=== PATIENT | female | born 1985 | race Asian ===

== ENCOUNTER 2021-11-21 13:04 | Emergency (ER) | payer MEDICAID ==
[~2021-11-21] VITALS: Ht 149.9 cm; Wt 61.4 kg
[2021-11-21 14:49] VITALS: BP 139/116
[2021-11-21] MEDS ORDERED: AMOX500C2 PO (14:55)
== END 2021-11-21 15:19 | disposition home or self-care (01) ==
LOC: ER 13:05
DX: J20.9 Acute bronchitis, unspecified (principal)
CPT/HCPCS: 99283

== ENCOUNTER 2024-08-29 20:00 | Inpatient (IN) | payer MEDICAID ==
[~2024-08-29] VITALS: Ht 149.9 cm; Wt 60.5 kg
[2024-08-29] MEDS ORDERED: nitroGLYCERIN-Tridil 50MG/D5W 250 ML IV ONE (20:40)
[2024-08-29 20:49] LABS: ALANINE AMINOTRANSFERASE 41 U/L (12-78); ALBUMIN/GLOBULIN RATIO 1.1 (1.1-1.5); ALKALINE PHOSPHATASE 120 IU/L (46-116); ANION GAP 6 (8-16); ASPARTATE AMINO TRANSFERASE 51 U/L (10-37); BILIRUBIN,TOTAL 0.4 MG/DL (0.1-1.0); BLOOD UREA NITROGEN 17 MG/DL (7-18); BUN/CREATININE RATIO 22.1 (10.0-20.0); CALCIUM 8.3 MG/DL (8.5-10.1); CHLORIDE 111 MMOL/L (99-107); CREATININE 0.77 MG/DL (0.40-0.90); GLUCOSE 116 MG/DL (70-104); SODIUM 143 MMOL/L (135-145); TOTAL CARBON DIOXIDE 25.7 MMOL/L (24-32); TOTAL PROTEIN 7.5 G/DL (6.4-8.2); eCRCL 68 ML/MIN; eGFR 84 ML/MIN
[2024-08-29 20:56] LABS: PRO BRAIN NATRIURETIC PEPTIDE 270 PG/ML (0-125)
[2024-08-29 21:00] LABS: POTASSIUM 3.9 MMOL/L (3.5-5.1)
[2024-08-29] MEDS: nitroGLYCERIN-Tridil 50MG/D5W 250 ML IV ONE (21:08)
[2024-08-29 21:50] LABS: BASOPHILS # (AUTO) 0.1 X10'3 (0-0.2); BASOPHILS % (AUTO) 0.9 % (0-1); EOSINOPHILS # (AUTO) 0.6 X10'3 (0-0.9); EOSINOPHILS % (AUTO) 7.9 % (0-6); HEMATOCRIT 36.6 % (35.0-45.0); HEMOGLOBIN 12.2 g/dl (12.0-16.0); LYMPHOCYTES % (AUTO) 41.2 % (21-51); MEAN CORPUSCULAR HEMOGLOBIN 26.1 PG (27.0-31.0); MEAN CORPUSCULAR HGB CONC 33.3 g/dL (33.0-36.5); MEAN CORPUSCULAR VOLUME 78.4 FL (78-98); MONOCYTES # (AUTO) 0.4 X10'3 (0-0.9); MONOCYTES % (AUTO) 5.4 % (2-12); NEUTROPHILS # (AUTO) 3.3 X10'3 (1.8-7.7); NEUTROPHILS % (AUTO) 44.6 % (42-75); PLATELET COUNT 236 X10'3 (140-440); RED BLOOD COUNT 4.67 X10'6 (4.20-5.60); RED CELL DISTRIBUTION WIDTH 15.1 % (11.5-14.5); WHITE BLOOD COUNT 7.3 X10'3 (4.5-11.0)
[2024-08-29 21:58] LABS: BILIRUBIN,URINE NEGATIVE (Neg); CLARITY,URINE CLEAR (Clear); COLOR,URINE YELLOW (Yellow); GLUCOSE, URINE NEGATIVE (Neg); KETONES,URINE NEGATIVE (Neg); LEUKOCYTE ESTERASE ,URINE NEGATIVE (Neg); NITRITES, URINE NEGATIVE (Neg); OCCULT BLOOD,URINE LARGE (Neg); PH,URINE 6.5 (4.8-8.0); PROTEIN,URINE 30 mg/dl (Neg); UROBILINOGEN,URINE 0.2 E.U/dL (0.2-1.0)
[2024-08-29 22:00] LABS: UA COLLECTION TYPE CLN CATCH MIDSTREAM
[2024-08-29 22:05] LABS: BACTERIA,URINE 1+ /HPF (Neg); SQUAMOUS EPITHELIAL CELL,UR MODERATE /LPF (FEW); WBC,URINE 0-4 /HPF (0-4)
[2024-08-29] MEDS: ondansetron/PF 4mg/2ml inj IV ONE (22:18)
[2024-08-29] MEDS: morphine 4 MG/ML inj SYRINge IV ONE (22:18)
[2024-08-29] MEDS ORDERED: iohexol 350MG/ML 100ml bottle IV ONE (23:03)
[2024-08-29 23:21] LABS: URINE HCG NEGATIVE (NEG)
[2024-08-29] MEDS: hydrALAZINE 20mg/ml inj. IV ONE (23:35)
[2024-08-29 23:53] LABS: THYROID STIMULATING HORMONE 4.01 ulU/ml (0.34-4.50)
[2024-08-30] VITALS (9 sets, daily range): BP systolic 132–176; BP diastolic 72–102; PULSE 67–116; RESP 14–19; TEMP 98; O2SAT 96–99
[2024-08-30] MEDS ORDERED: acetaminophen 325mg tablet PO PRN (01:35)
[2024-08-30] MEDS ORDERED: morphine 2 MG/ML inj. syringe IV PRN (01:35)
[2024-08-30] MEDS ORDERED: magnesium sulf-water 4G/100mL 100 ML IV PRN (01:35)
[2024-08-30] MEDS ORDERED: mag hydrox/Alum hydrox/simeth 30ml oral suspension PO PRN (01:35)
[2024-08-30] MEDS ORDERED: potassium Cl 20 mEq SR tablet PO PRN (01:35)
[2024-08-30] MEDS ORDERED: magnesium sulf-water 2g/50mL 50 ML IV PRN (01:35)
[2024-08-30] MEDS ORDERED: potassium Cl 40MEQ/1/2NS 520ml 520 ML IV PRN (01:35)
[2024-08-30] MEDS ORDERED: magnesium hydroxide 30ml (MOM) UD suspension PO PRN (01:35)
[2024-08-30] MEDS ORDERED: magnesium Cl slow-release 64mg tablet PO PRN (01:35)
[2024-08-30 02:26] LABS: HEMOGLOBIN A1C 5.3 % (4.5-6.2)
[2024-08-30 02:49] LABS: MAGNESIUM 1.8 MG/DL (1.5-2.4)
[2024-08-30 03:02] LABS: POTASSIUM 3.6 MMOL/L (3.5-5.1)
[2024-08-30] MEDS: docusate sod 100mg capsule PO SCH (08:00)
[2024-08-30] MEDS: heparin, porcine 5000 units/ml vial SQ SCH (08:00)
[2024-08-30 08:02] LABS: BASOPHILS # (AUTO) 0.1 X10'3 (0-0.2); BASOPHILS % (AUTO) 0.9 % (0-1); EOSINOPHILS # (AUTO) 0.6 X10'3 (0-0.9); EOSINOPHILS % (AUTO) 7.9 % (0-6); HEMATOCRIT 35.2 % (35.0-45.0); HEMOGLOBIN 12.1 g/dl (12.0-16.0); LYMPHOCYTES # (AUTO) 2.7 X10'3 (1.1-4.8); LYMPHOCYTES % (AUTO) 35.5 % (21-51); MEAN CORPUSCULAR HEMOGLOBIN 26.9 PG (27.0-31.0); MEAN CORPUSCULAR HGB CONC 34.3 g/dL (33.0-36.5); MEAN CORPUSCULAR VOLUME 78.2 FL (78-98); MONOCYTES # (AUTO) 0.4 X10'3 (0-0.9); MONOCYTES % (AUTO) 5.7 % (2-12); NEUTROPHILS # (AUTO) 3.8 X10'3 (1.8-7.7); PLATELET COUNT 226 X10'3 (140-440); RED CELL DISTRIBUTION WIDTH 15.5 % (11.5-14.5); WHITE BLOOD COUNT 7.6 X10'3 (4.5-11.0)
[2024-08-30 08:14] LABS: ALANINE AMINOTRANSFERASE 33 U/L (12-78); ALBUMIN 3.3 G/DL (3.4-5.0); ALBUMIN/GLOBULIN RATIO 1.1 (1.1-1.5); ALKALINE PHOSPHATASE 99 IU/L (46-116); ANION GAP 11 (8-16); ASPARTATE AMINO TRANSFERASE 31 U/L (10-37); BILIRUBIN,TOTAL 0.4 MG/DL (0.1-1.0); BLOOD UREA NITROGEN 14 MG/DL (7-18); BUN/CREATININE RATIO 18.9 (10.0-20.0); CHLORIDE 109 MMOL/L (99-107); CREATININE 0.74 MG/DL (0.40-0.90); GLUCOSE 91 MG/DL (70-104); POTASSIUM 3.2 MMOL/L (3.5-5.1); SODIUM 143 MMOL/L (135-145); TOTAL CARBON DIOXIDE 22.8 MMOL/L (24-32); TOTAL PROTEIN 6.4 G/DL (6.4-8.2); eCRCL 70 ML/MIN; eGFR 88 ML/MIN
[2024-08-30] MEDS: potassium Cl 20 mEq SR tablet PO PRN (08:57)
[2024-08-30] MEDS: losartan 50mg tablet PO SCH (08:57)
[2024-08-30] MEDS: K and/or MAG REPLACEMENT MC SCH (08:58)
[2024-08-30] MEDS: hydrALAZINE 20mg/ml inj. IV PRN (10:51)
[2024-08-30] MEDS: nitroGLYCERIN 0.4mg/hour patch TD ONE (11:05)
[2024-08-30] MEDS ORDERED: metoprolol tartrate 1mg/ml inj IV PRN (12:25)
[2024-08-30] MEDS ORDERED: nitroGLYCERIN 0.4mg SUBLingual tab SL PRN ×2 (12:25→12:35)
[2024-08-30] MEDS: ondansetron/PF 4mg/2ml inj IV PRN (14:28)
[2024-08-30] MEDS: atorvastatin 20mg tablet PO SCH (14:31)
[2024-08-30] MEDS: acetaminophen 325mg tablet PO PRN (14:31)
[2024-08-30] MEDS: regadenoson 0.4mg/5ml syringe IV PRN (15:31)
[2024-08-30] MEDS ORDERED: iohexol 350MG/ML 100ml bottle IV ONE (18:03)
[2024-08-30] MEDS: metoprolol succinate 25mg (24-HOUR) SR. Tablet PO SCH (19:58)
[2024-08-31 02:00] VITALS: BP 126/82; PULSE 64; RESP 11; TEMP 97; O2SAT 98
[2024-08-31 06:00] VITALS: BP 142/85; PULSE 61; RESP 15; TEMP 97.3; O2SAT 97
[2024-08-31 07:24] LABS: BASOPHILS # (AUTO) 0.1 X10'3 (0-0.2); BASOPHILS % (AUTO) 0.8 % (0-1); EOSINOPHILS # (AUTO) 0.2 X10'3 (0-0.9); EOSINOPHILS % (AUTO) 2.9 % (0-6); HEMATOCRIT 36.3 % (35.0-45.0); HEMOGLOBIN 12.1 g/dl (12.0-16.0); LYMPHOCYTES # (AUTO) 2.6 X10'3 (1.1-4.8); LYMPHOCYTES % (AUTO) 37.8 % (21-51); MEAN CORPUSCULAR HEMOGLOBIN 26.3 PG (27.0-31.0); MEAN CORPUSCULAR HGB CONC 33.5 g/dL (33.0-36.5); MEAN CORPUSCULAR VOLUME 78.6 FL (78-98); MEAN PLATELET VOLUME 8.1 FL (7.4-10.4); MONOCYTES # (AUTO) 0.3 X10'3 (0-0.9); MONOCYTES % (AUTO) 5.1 % (2-12); NEUTROPHILS # (AUTO) 3.6 X10'3 (1.8-7.7); NEUTROPHILS % (AUTO) 53.4 % (42-75); PLATELET COUNT 234 X10'3 (140-440); RED BLOOD COUNT 4.62 X10'6 (4.20-5.60); RED CELL DISTRIBUTION WIDTH 15.6 % (11.5-14.5); WHITE BLOOD COUNT 6.8 X10'3 (4.5-11.0)
[2024-08-31 07:54] LABS: ALANINE AMINOTRANSFERASE 34 U/L (12-78); ALBUMIN 3.4 G/DL (3.4-5.0); ALBUMIN/GLOBULIN RATIO 1.1 (1.1-1.5); ALKALINE PHOSPHATASE 96 IU/L (46-116); ANION GAP 12 (8-16); ASPARTATE AMINO TRANSFERASE 27 U/L (10-37); BILIRUBIN,TOTAL 0.5 MG/DL (0.1-1.0); BLOOD UREA NITROGEN 21 MG/DL (7-18); BUN/CREATININE RATIO 23.6 (10.0-20.0); CALCIUM 8.6 MG/DL (8.5-10.1); CHLORIDE 109 MMOL/L (99-107); CHOLESTEROL 134 MG/DL (0-200); CREATININE 0.89 MG/DL (0.40-0.90); GLUCOSE 95 MG/DL (70-104); HDL CHOLESTEROL 45 MG/DL (35-60); LDL CHOLESTEROL 76 MG/DL (50-100); MAGNESIUM 2.1 MG/DL (1.5-2.4); POTASSIUM 3.7 MMOL/L (3.5-5.1); SODIUM 142 MMOL/L (135-145); TOTAL CARBON DIOXIDE 21.5 MMOL/L (24-32); TOTAL PROTEIN 6.6 G/DL (6.4-8.2); TRIGLYCERIDES 76 MG/DL (20-135); eCRCL 58 ML/MIN; eGFR 71 ML/MIN
[2024-08-31] MEDS ORDERED: lisinopril 10 MG tablet PO SCH (08:00)
[2024-08-31] MEDS: losartan 50mg tablet PO SCH (09:02)
[2024-08-31] MEDS: aspirin 81mg, enteric-coated 1 TAB TABLET.DR PO SCH (09:03)
[2024-08-31 11:00] VITALS: BP 144/86; PULSE 50; RESP 19; TEMP 97.3; O2SAT 96
[2024-08-31] MEDS: aminophylline 500mg/20ml vial IV PRN (14:04)
[2024-08-31] MEDS: metoprolol succinate 25mg (24-HOUR) SR. Tablet PO SCH (14:25)
[2024-08-31 15:00] VITALS: BP 112/67; PULSE 57; RESP 17; TEMP 97.2; O2SAT 99
[2024-08-31 18:00] VITALS: BP 145/85; PULSE 53; RESP 17; TEMP 97.6; O2SAT 98
[2024-08-31 22:00] VITALS: BP 151/90; PULSE 55; RESP 19; TEMP 97.7; O2SAT 97
[2024-09-01 02:00] VITALS: BP 134/75; PULSE 58; RESP 14; TEMP 97.8; O2SAT 96
[2024-09-01 06:31] LABS: BASOPHILS # (AUTO) 0.1 X10'3 (0-0.2); BASOPHILS % (AUTO) 0.7 % (0-1); EOSINOPHILS # (AUTO) 0.3 X10'3 (0-0.9); HEMATOCRIT 37.7 % (35.0-45.0); HEMOGLOBIN 12.5 g/dl (12.0-16.0); LYMPHOCYTES # (AUTO) 2.8 X10'3 (1.1-4.8); LYMPHOCYTES % (AUTO) 39.8 % (21-51); MEAN CORPUSCULAR HEMOGLOBIN 26.2 PG (27.0-31.0); MEAN CORPUSCULAR HGB CONC 33.2 g/dL (33.0-36.5); MEAN CORPUSCULAR VOLUME 78.8 FL (78-98); MONOCYTES # (AUTO) 0.4 X10'3 (0-0.9); MONOCYTES % (AUTO) 5.8 % (2-12); NEUTROPHILS # (AUTO) 3.5 X10'3 (1.8-7.7); NEUTROPHILS % (AUTO) 49.7 % (42-75); PLATELET COUNT 218 X10'3 (140-440); RED BLOOD COUNT 4.78 X10'6 (4.20-5.60); RED CELL DISTRIBUTION WIDTH 15.5 % (11.5-14.5); WHITE BLOOD COUNT 7.1 X10'3 (4.5-11.0)
[2024-09-01 06:54] LABS: ALANINE AMINOTRANSFERASE 33 U/L (12-78); ALBUMIN 3.4 G/DL (3.4-5.0); ALKALINE PHOSPHATASE 92 IU/L (46-116); ANION GAP 7 (8-16); ASPARTATE AMINO TRANSFERASE 17 U/L (10-37); BILIRUBIN,TOTAL 0.3 MG/DL (0.1-1.0); BLOOD UREA NITROGEN 23 MG/DL (7-18); BUN/CREATININE RATIO 34.8 (10.0-20.0); CALCIUM 8.1 MG/DL (8.5-10.1); CHLORIDE 109 MMOL/L (99-107); CREATININE 0.66 MG/DL (0.40-0.90); GLUCOSE 103 MG/DL (70-104); POTASSIUM 4.1 MMOL/L (3.5-5.1); SODIUM 142 MMOL/L (135-145); TOTAL CARBON DIOXIDE 25.8 MMOL/L (24-32); TOTAL PROTEIN 6.7 G/DL (6.4-8.2); eCRCL 79 ML/MIN; eGFR > 90 ML/MIN
[2024-09-01 07:00] VITALS: BP 144/94; PULSE 56; RESP 16; TEMP 97.5; O2SAT 98
[2024-09-01 07:20] VITALS: BP_SYST 144; PULSE 98
[2024-09-01] MEDS: amLODIPine 5mg tablet PO SCH (07:20)
[2024-09-01] MEDS ORDERED: METO-395 PO (07:52)
[2024-09-01] MEDS ORDERED: ATOR20TA66 PO (07:52)
[2024-09-01] MEDS ORDERED: NOR5T PO (07:52)
== END 2024-09-01 09:46 | disposition home or self-care (01) | DRG 199 ==
LOC: ER 20:02 → ED HOLD 08-30 01:37 → PCU 3S 08-30 21:32
PROVIDERS: ADMIT Surgery Surgical Critical Care; ATTEND Family Medicine
PROC: BW251ZZ Computerized Tomography (CT Scan) of Chest, Abdomen and Pelvis using Low Osmolar Contrast (ICD-10-PCS; 2024-08-29)
PROC: 4A02XM4 Measurement of Cardiac Total Activity, External Approach (ICD-10-PCS; principal; 2024-08-30)
PROC: 3E033HZ Introduction of Radioactive Substance into Peripheral Vein, Percutaneous Approach (ICD-10-PCS; 2024-08-30)
PROC: B3251ZZ Computerized Tomography (CT Scan) of Bilateral Common Carotid Arteries using Low Osmolar Contrast (ICD-10-PCS; 2024-08-30)
PROC: B32G1ZZ Computerized Tomography (CT Scan) of Bilateral Vertebral Arteries using Low Osmolar Contrast (ICD-10-PCS; 2024-08-30)
PROC: B32R1ZZ Computerized Tomography (CT Scan) of Intracranial Arteries using Low Osmolar Contrast (ICD-10-PCS; 2024-08-30)
PROC: B3281ZZ Computerized Tomography (CT Scan) of Bilateral Internal Carotid Arteries using Low Osmolar Contrast (ICD-10-PCS; 2024-08-30)
DX: I16.1 Hypertensive emergency (principal); I67.83 Posterior reversible encephalopathy syndrome; G45.9 Transient cerebral ischemic attack, unspecified; I20.0 Unstable angina; E04.1 Nontoxic single thyroid nodule; Z90.49 Acquired absence of other specified parts of digestive tract
CPT/HCPCS: 36415; 70450; 70496; 70498; 70551; 71045; 71275; 74174; 76536; 78452; 80053; 80061; 81001; 81025; 83036; 83735; 83880; 84132; 84443; 84484; 85025; 85651; 87081; 93005; 93017; 93306; 96365; 96375; 99291; A4615; A9500; G0378; J0360; J1644; J2270; J2405; J2785; J3490; Q9967

== ENCOUNTER 2024-12-14 07:11 | Day surgery (SDC) | payer MEDICAID ==
[~2024-12-14] VITALS: Ht 149.9 cm; Wt 65.2 kg
[~2024-12-14 07:11] MED LIST: ATOR20TA66 PO; METO-395 PO; NOR5T PO
[2024-12-14] MEDS ORDERED: normal saline 1000ml 1,000 ML IV PRN (07:35)
[2024-12-14] MEDS ORDERED: AMLO5TAB16 PO (07:56)
[2024-12-14] MEDS ORDERED: ATOR20TA PO (07:57)
[2024-12-14] MEDS ORDERED: LOP12.5T PO (07:57)
[2024-12-14 09:30] VITALS: RESP 15; O2SAT 97
[2024-12-14 10:04] VITALS: BP 171/101; PULSE 53; RESP 15; O2SAT 97
[2024-12-14 10:19] VITALS: BP 155/98; PULSE 54; RESP 13; O2SAT 97
[2024-12-14 10:34] VITALS: BP 148/89; PULSE 49; RESP 13; O2SAT 95
[2024-12-14 10:48] VITALS: BP 151/94; PULSE 54; RESP 11; O2SAT 96
--- NOTE | 2024-12-14 10:56 | PROGRESS NOTE ---
H&P - Interval Note Providers to CC ~ Patient examined and condition: Yes Interval changes as follows: Large calcified left thyroid nodule. Here for FNA biopsy. Risks benefits alt of US FNA of this d/w pt and informed consent disclosed. Approx [id number] Calcified TIRADS4 lesion. Mal 2 and ASA 2. Will proceed. PAPER h and p in chart today. VIKKI HELLER MD Dec 14, 2024 10:56
--- NOTE | 2024-12-14 15:25 | RADIOLOGY REPORT ---
FNA aspiration LEFT THYROID LOBE NODULE Clinical indications: Left thyroid lobe nodule with calcification with rating of TI RADS 4 measuring approximately 3 cm in greatest dimension After explanation of the above procedure and informed consent, patient was prepped and draped in usual sterile fashion. A surgical timeout was performed. Next, ultrasound guidance and a total of 5 separate 25-gauge needle passes were made into the approximate 3 cm left thyroid lobe calcified nodule for FNA evaluation. There were no immediate complications. Color Doppler imaging after biopsy demonstrated no evidence of extravasation or hematoma. A total of 2 cc 1% lidocaine solution used for local anesthesia. Impression: Left thyroid lobe nodule FNA aspiration.
== END 2024-12-14 11:00 | disposition home or self-care (01) ==
LOC: SSTAY O 07:11
PROVIDERS: ATTEND Nurse Practitioner Family
DX: E04.1 Nontoxic single thyroid nodule (principal)
CPT/HCPCS: 10005; A6449